=== PATIENT | female | born 1975 | race African-American/Black ===

== ENCOUNTER 2016-11-05 11:17 | Emergency (ER) | payer OTHER ==
[~2016-11-05] VITALS: Ht 157.5 cm; Wt 63.5 kg
[~2016-11-05 11:17] MED LIST: A.E.R PADS1 JAR TOP; APAP500 PO; DERMOPLAST SPRA56 ML; FIORICET 50-301 EACH PO; HYDROCODON-ACE1 EAC7 PO; HYDROCORTISONE30 G9 RECTAL; IBUPROFEN 600600 M1 PO; KEFLEX500 MG PO; LANOLIN56 GM; NORCO 5-325 TA1 EACH PO; PENICILLIN V P500 MG PO; PRENATAL; PRINIVIL20 MG PO; TRAMADOL 50 MG50 MG PO; TYLENOL325 MG PO; VISTARIL 25 MG25 M1 PO; XANAX 0.25 MG0.25 MG PO; [UNRECOGNIZED DRUG - OTHER] PO
[2016-11-05 12:16] LABS: BASOPHILS 0.5 % (0.0-2.0); EOSINOPHILS 1.5 % (0.0-3.0); HEMATOCRIT 44.1 % (37.0-47.0); HEMOGLOBIN 14.8 gm/dL (12.0-15.0); LYMPHOCYTES 16.1 % (24.0-44.0); MCH 30.6 pg (26.0-34.0); MCHC 33.6 g/dL (28.0-37.0); MCV 91.1 fL (80.0-100.0); MONOCYTES 8.5 % (1.0-8.0); PLATELET COUNT 257 thou/uL (150-400); POLYS 73.4 % (36.0-66.0); RBC 4.84 mil/uL (4.20-5.00); RDW 13.8 % (10.5-14.5); WBC 12.2 thou/uL (4.0-11.0)
[2016-11-05 12:22] LABS: CALCIUM 8.4 mg/dL (8.5-10.1); CREATININE 0.9 mg/dL (0.6-1.0); POTASSIUM 3.7 mmol/L (3.5-5.1)
[2016-11-05 12:25] LABS: MANUAL DIFF NO
[2016-11-05] MEDS ORDERED: HYDROCODONE-AP1 EAC6 PO (14:07)
[2016-11-05] MEDS ORDERED: IBUPROFEN 600600 M1 PO (14:07)
[2016-11-05] MEDS ORDERED: DICLOXACILLIN500 MG PO (14:07)
== END 2016-11-05 14:39 | disposition home or self-care (01) ==
LOC: ER 11:17
PROVIDERS: Physician Assistant
DX: N61.0 Mastitis without abscess (principal); D72.829 Elevated white blood cell count, unspecified; I10 Essential (primary) hypertension

== ENCOUNTER 2016-12-30 16:21 | Emergency (ER) | payer OTHER ==
[~2016-12-30] VITALS: Ht 157.5 cm; Wt 54.4 kg
[~2016-12-30 16:21] MED LIST changes: +DICLOXACILLIN500 MG PO; +HYDROCODONE-AP1 EAC6 PO
[2016-12-30] MEDS ORDERED: NORCO 5-325 TA1 EACH PO (17:25)
== END 2016-12-30 17:52 | disposition home or self-care (01) ==
LOC: ER 16:21
DX: S92.425A Nondisplaced fracture of distal phalanx of left great toe, initial encounter for closed fracture (principal); I10 Essential (primary) hypertension; F17.210 Nicotine dependence, cigarettes, uncomplicated; F10.99 Alcohol use, unspecified with unspecified alcohol-induced disorder; W20.8XXA Other cause of strike by thrown, projected or falling object, initial encounter; Y93.89 Activity, other specified; Y92.89 Other specified places as the place of occurrence of the external cause; Y99.8 Other external cause status

== ENCOUNTER 2017-10-14 17:01 | Emergency (ER) | payer OTHER ==
[~2017-10-14] VITALS: Ht 157.5 cm; Wt 62.6 kg
[2017-10-14] MEDS ORDERED: DICLOXACILLIN500 MG PO (17:37)
[2017-10-14] MEDS ORDERED: NORCO 5-325 TA1 EACH PO (17:39)
== END 2017-10-14 18:57 | disposition home or self-care (01) ==
LOC: ER 17:01
DX: N61.0 Mastitis without abscess (principal); I10 Essential (primary) hypertension; F17.210 Nicotine dependence, cigarettes, uncomplicated